=== PATIENT | female | born 1960 | race Two or more races ===

== ENCOUNTER 2020-02-20 12:10 | Emergency (ER) | payer OTHER, SELFPAY ==
[2020-02-20 12:55] VITALS: BP 153/77; PULSE 99; RESP 18; TEMP 36.3; O2SAT 98; BMI 30.2
--- NOTE | 2020-02-20 13:13 | ED.EXTPRO ---
HPI - Extremity Problem General Chief complaint: Extremity Injury, Upper Stated complaint: FELL HURT RT ARM Time Seen by Provider: 02/20/20 12:52 Source: patient Mode of arrival: ambulatory Limitations: no limitations History of Present Illness HPI Narrative: 59 y/o female presenting with RUE pain after she fell 2+ weeks ago. She was evaluated at [facility] - reportedly had x-rays of her forearm and elbow that were negative. She reports continued pain. She is taking Tylenol without improvement in the pain. MD Complaint: extremity pain Onset (ago): week(s) (2) Pain Consistency: constant Location: right and upper extremity Severity scale (1-10): 7 Quality: aching Radiation: distal Relieving factors: nothing Exacerbating factors: range of motion and palpation Associated symptoms: denies other symptoms Related Data Previous Rx's Medication Instructions Recorded oxycodone 5 mg PO Q8H PRN #8 tab 02/20/20 Allergies Allergy/AdvReac Type Severity Reaction Status Date / Time naproxen [From Naprosyn] Allergy Unknown Verified 02/20/20 12:58 Review of Systems Review of Systems: Constitutional: No Fever, No Chills Cardiovascular: No Chest Pain, No SOB, No Orthopnea, No Edema Respiratory: No Cough, No Sputum, No Wheezing, No dyspnea Gastrointestinal: No Nausea, No Vomiting, No Diarrhea, No abdominal Pain Musculoskeletal: + joint pain, No Myalgias Skin: No Skin Lesions, No rash Neuro: No Weakness, No Numbness, No Dizziness, No Headache Heme/Lymph: No Bruising PMFSH Past Medical History Medical History (Updated 02/20/20 @ 14:01 by ATA Soares) No known health problems Social History Social History Advance Directives: No Advance Directives Information Provided: No Physical Exam Vital Signs: Vital Signs: Last Vital Signs Temp 97.4 F 02/20/20 12:55 Pulse 99 02/20/20 12:55 Resp 18 02/20/20 12:55 BP 153/77 H 02/20/20 12:55 Pulse Ox 98 02/20/20 12:55 Body Mass Index 30.2 Appearance: Alert. Oriented X3. No acute distress. HEENT: normal inspection CVS: Normal heart rate and rhythm. Pulses normal. Respiratory: No respiratory distress. Skin: Skin warm and dry. Normal skin color. Normal skin turgor. No rashes. Extremities: right shoulder anterior and posterior tenderness, no deformity painful abduction of arm, no clavicular tenderness normal elbow ROM, nontender, nontender forearm and wrist. Neuro: Oriented X 3. No motor deficit. No sensory deficit. Course Course Course Narrative: 59 y/o presenting with continued RUE pain after a fall on 02/04. XR reviewed from [facility] on 02/10 - XR of shoulder and elbow were normal. She denies new injury. ROM of elbow is normal, painful abduction of the arm at shoulder joint. Will refer to Ortho for further evaluation. Will place in sling for comfort and immobilization until she can be re-evaluated by Orthopedics. Discharge Plan Discharge Clinical Impression: Right shoulder pain Qualifiers: Chronicity: acute Qualified Code(s): M25.511 - Pain in right shoulder Patient Disposition: Home, Self-Care Instructions: Shoulder Sprain (ED), Shoulder Pain (ED) Additional Instructions: Recommend using sling until you are able to be evaluated by Orthopedics. Rest your arm. Do not lift anything. Take Tylenol as needed for pain. Do not exceed 4,000 mg in 24 hour period. Follow up with Orthopedics this week. Prescriptions: New oxycodone 5 mg tablet 5 mg PO Q8H PRN (Reason: pain) Qty: 8 RF: 0 Referrals: Suhas Lee MD [Physician] - 2 days (traumatic shoulder pain x3 weeks )
== END 2020-02-20 14:16 | disposition home or self-care (01) ==
PROVIDERS: Emergency Provider Emergency Medicine Emergency Medical Services; PCP Physician Assistant
DX: G89.29 Other chronic pain (principal); M25.511 Pain in right shoulder
CPT/HCPCS: 99283